=== PATIENT | female | born 1965 | race Caucasian/White ===

== ENCOUNTER 2016-10-29 17:40 | Inpatient (IN) | payer OTHER ==
[2016-10-29] MEDS ORDERED: HYDROmorphone 1 MG/ML Syringe IVPUSH ONE ×2 (17:50→18:50)
[2016-10-29] MEDS ORDERED: Ondansetron 4 MG/2 ML SDV IVPUSH ONE ×2 (17:51→18:50)
[2016-10-29] MEDS ORDERED: Sodium Chloride 0.9% 10 ML Syringe FLUSH PRN (17:58)
[2016-10-29] MEDS ORDERED: Iopamidol 612 MG/ML 100 ML Bottle IV SCH (18:00)
[2016-10-29] MEDS ORDERED: Sodium Chloride 0.9% 1,000 ML IV SCH ×3 (18:00→22:01)
[2016-10-29] MEDS ORDERED: LORazepam 2 MG/ML MDV IVPUSH ONE (19:50)
[2016-10-29] MEDS ORDERED: Docusate Sodium 100 MG Cap PO PRN (22:01)
[2016-10-29] MEDS ORDERED: Albuterol 0.083% 2.5 MG/3 ML Neb Soln NEB PRN (22:01)
[2016-10-29] MEDS ORDERED: Naloxone 0.4 MG/ML SDV IVPUSH PRN (22:01)
[2016-10-29] MEDS ORDERED: HYDROmorphone/Normal Saline 15 MG/30 ML PCA IV PRN (22:01)
[2016-10-29] MEDS ORDERED: Zolpidem 5 MG Tab PO PRN (22:01)
[2016-10-29] MEDS ORDERED: Albuterol/Ipratropium 3.0-0.5 MG/3 ML Neb Soln INH PRN (22:01)
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
[2016-10-29] MEDS: Ondansetron 4 MG Tab.DIS PO PRN (22:33)
[2016-10-30] MEDS: Ondansetron 4 MG Tab.DIS PO PRN ×3 (04:18→16:23)
[2016-10-30] MEDS: D5 1/2 NS w/ 20 mEq/L KCl 1,000 ML IV SCH ×2 (08:25→18:34)
[2016-10-30] MEDS ORDERED: Pantoprazole 40 MG Vial IVPUSH SCH (09:00)
[2016-10-30] MEDS: Docusate Sodium 100 MG Cap PO SCH ×2 (09:13→20:47)
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
--- NOTE | 2016-10-30 09:30 | PCM.PN ---
- General Info Date of Service: 10/30/16 Admission Dx/Problem (Free Text): Three rib fractures with small pneumothorax. Functional Status: Reports: pain controlled, tolerating diet (Has not had breakfast yet. ) - Review of Systems General: Reports: Other (Left chest pain.) HEENT: Reports: no symptoms Pulmonary: Reports: other (Left chest pain. ) Cardiovascular: Reports: No Symptoms Gastrointestinal: Reports: No symptoms Genitourinary: Reports: no symptoms Musculoskeletal: Reports: no symptoms Skin: Reports: no symptoms Neurological: Reports: No Symptoms Psychiatric: Reports: no symptoms - Patient Data Vitals - most recent: Last Vital Signs Temp 98.2 F 10/30/16 09:09 Pulse 61 10/30/16 09:09 Resp 20 10/30/16 09:09 BP 105/65 10/30/16 09:09 Pulse Ox 100 10/30/16 09:09 Weight - most recent: 173 lb 3.2 oz I&O - last 24 hours: Intake & Output 10/29/16 10/30/16 10/30/16 22:59 06:59 14:59 Intake Total 701 Output Total 600 300 Balance 101 -300 Lab Results last 24 hrs: Laboratory Results - last 24 hr 10/30/16 10/30/16 Range/Units 02:34 05:55 WBC 8.6 (4.5-11.0) K/uL RBC 4.05 (3.30-5.50) M/uL Hgb 11.4 L D (12.0-15.0) g/dL Hct 35.2 L (36.0-48.0) % MCV 87 (80-98) fL MCH 28 (27-31) pg MCHC 32 (32-36) % Plt Count 199 (150-400) K/uL Neut % (Auto) 78 H (36-66) % Lymph % (Auto) 12 L (24-44) % [place] % (Auto) 10 H (2-6) % Eos % (Auto) 0 L (2-4) % Baso % (Auto) 0 (0-1) % Urine Color Yellow Urine Appearance Clear Urine pH 6.0 (4.5-8.0) Ur Specific [place] 1.020 (1.008-1.030) Urine Protein Negative (NEGATIVE) mg/dL Urine Glucose (UA) 100 H (NEGATIVE) mg/dL Urine Ketones Negative (NEGATIVE) mg/dL Urine Occult Blood Negative (NEGATIVE) Urine Nitrite Negative (NEGATIVE) Urine Bilirubin Negative (NEGATIVE) Urine Urobilinogen Normal (NORMAL) mg/dL Ur Leukocyte Esterase Negative (NEGATIVE) Urine RBC Not seen (0-5) Urine WBC Not seen (0-5) Ur Epithelial Cells Few Amorphous Sediment Not seen Urine Bacteria Not seen Urine Mucus Few Med Orders - Current: Current Medications Albuterol (Proventil Neb Soln) 2.5 mg NEB Q4H PRN PRN Reason: Shortness Of Breath/wheezing Albuterol/Ipratropium (Duoneb 3.0-0.5 Mg/3 Ml) 3 ml INH ONETIME PRN PRN Reason: Shortness Of Breath/wheezing Docusate Sodium (Colace) 100 mg PO BID PRN PRN Reason: Constipation Docusate Sodium (Colace) 100 mg PO BID [facility] Last Admin: 10/30/16 09:13 Dose: 100 mg Hydromorphone HCl (Dilaudid Bottom Ironer 15 Mg In Ns 30 Ml) 0 mg IV ASDIRECTED PRN; Protocol PRN Reason: Pain Last Admin: 10/29/16 22:34 Dose: 15 mg Potassium Chloride/Dextrose/Sod Cl (D5 1/2 Ns W/ 20 Meq/L Kcl) 1,000 mls @ 100 mls/hr IV ASDIRECTED [facility] Last Admin: 10/30/16 08:25 Dose: 100 mls/hr Lorazepam (Ativan) 1 mg IV Q6H PRN PRN Reason: Nausea/Vomiting Naloxone HCl (Narcan) 0.4 mg IVPUSH Q2M PRN PRN Reason: Respiratory Distress Ondansetron HCl (Zofran Odt) 4 mg PO Q6H PRN PRN Reason: Nausea able to take PO Last Admin: 10/30/16 04:18 Dose: 4 mg Pantoprazole Sodium (Protonix Iv) 40 mg IVPUSH DAILY [facility] Last Admin: 10/30/16 09:13 Dose: 40 mg Zolpidem Tartrate (Ambien) 5 mg PO BEDTIME PRN PRN Reason: Sleep Discontinued Medications Hydromorphone HCl (Dilaudid) 1 mg IVPUSH ONETIME ONE Stop: 10/29/16 17:51 Last Admin: 10/29/16 18:14 Dose: 1 mg Hydromorphone HCl (Dilaudid) 1 mg IVPUSH ONETIME ONE Stop: 10/29/16 18:51 Last Admin: 10/29/16 19:03 Dose: 1 mg Sodium Chloride (Normal Saline) 1,000 mls @ 999 mls/hr IV ASDIRECTED COY Last Admin: 10/29/16 18:12 Dose: 999 mls/hr Sodium Chloride (Normal Saline) 70 mls @ 3 mls/sec IV ASDIRECTED COY Last Admin: 10/29/16 18:57 Dose: 3 mls/sec Sodium Chloride (Normal Saline) 1,000 mls @ 999 mls/hr IV ASDIRECTED COY Last Admin: 10/29/16 19:53 Dose: 999 mls/hr Sodium Chloride (Normal Saline) 1,000 mls @ 150 mls/hr IV ASDIRECTED COY Iopamidol (Isovue-300 (61%)) 100 ml IV . DIRECTED COY Last Admin: 10/29/16 18:57 Dose: 100 ml Lorazepam (Ativan) 1 mg IVPUSH ONETIME ONE Stop: 10/29/16 19:51 Last Admin: 10/29/16 20:02 Dose: 1 mg Ondansetron HCl (Zofran) 4 mg IVPUSH ONETIME ONE Stop: 10/29/16 17:52 Last Admin: 10/29/16 18:13 Dose: 4 mg Ondansetron HCl (Zofran) 4 mg IVPUSH ONETIME ONE Stop: 10/29/16 18:51 Last Admin: 10/29/16 18:58 Dose: 4 mg Sodium Chloride (Saline Flush) 10 ml FLUSH ASDIRECTED PRN PRN Reason: Keep Vein Open Last Admin: 10/29/16 18:57 Dose: 10 ml - Exam Quality Assessment: supplemental oxygen General: alert, oriented, cooperative, no acute distress Lungs: Clear to auscultation, Normal respiratory effort Cardiovascular: Regular Rate, Regular Rhythm Abdomen: bowel sounds present, soft, no tenderness, no distension Back Exam: Normal Inspection, Full Range of Motion Extremities: no edema Skin: warm, dry, intact Neurological: no new focal deficit, normal speech, normal tone Psy/Mental Status: alert, normal affect, normal mood - Problem List Review Problem List Initiated/Reviewed/Updated: Yes - My Orders Last 24 Hours: My Active Orders 10/29/16 20:20 Transfer Patient (Change bed) [ADT] Routine 10/29/16 22:15 D5 1/2 NS w/ 20 mEq/L KCl 1,000 ml IV ASDIRECTED 10/29/16 22:18 Communication Order [RC] ROUTINE 10/30/16 09:00 Docusate Sodium [Colace] 100 mg PO BID - Assessment Assessment:: CXR looks well with fractures. If she eats well and has good pain control with oral pain medication, she may go home. - Plan Plan:: Fractured ribs #8, 9, 10 on left with very small pneumothorax. Patient is admitted for pain control and to follow her.
[2016-10-30] MEDS: Acetaminophen/HYDROcodone 325-5 MG Tab PO PRN ×3 (10:48→20:58)
[2016-10-30] MEDS: LORazepam 2 MG/ML MDV IV PRN (14:16)
[2016-10-31] MEDS: Acetaminophen/HYDROcodone 325-5 MG Tab PO PRN ×3 (03:49→08:17)
[2016-10-31] MEDS: Ondansetron 4 MG Tab.DIS PO PRN ×3 (03:50→17:53)
[2016-10-31] MEDS: D5 1/2 NS w/ 20 mEq/L KCl 1,000 ML IV SCH (03:56)
[2016-10-31] MEDS: Docusate Sodium 100 MG Cap PO SCH (08:19)
--- NOTE | 2016-10-31 11:16 | PCM.DCSUM1 ---
Discharge Summary - Hospital Course Free Text/Narrative:: This 51 year old white female lives on [address] [place]. Two days ago she was getting out of her boat (barge) when she fell on the dock complaining of left chest pain and nausea. She presented to the ER where she was found on CT of her chest to have fractures of left ribs #8, 9, and 10. There was also a small pneumothorax and subcutaneous emphysema. She was admitted for pain control and serial CXR's. Currently her pain is improving. She is taking Perry which causes nausea. CXR's appear OK. We are adding Toradol as her Hgb is stable. She is eating and ready to go home. She is discharge to home in good condition. Brief History: See above narrative. - Discharge Data Discharge Date: 10/31/16 Discharge Disposition: Home, Self-Care 01 Condition: Good - Discharge Diagnosis/Problem(s) (1) Pneumothorax on left SNOMED Code(s): 291544345 ICD Code: J93.9 - PNEUMOTHORAX, UNSPECIFIED Status: Acute Current Visit: Yes - Patient Summary/Data Consults: Consultations 10/29/16 22:01 OT Evaluation and Treatment [CONS] Routine Please Evaluate and Treat. OT Reason for Consult: Discharge Planning This query below is only for informational purposes and is not editable. Admission Diagnosis/Problem: Pneumothorax PT Evaluation and Treatment [CONS] Routine Please Evaluate and Treat. PT Reason for Consult: Other (Type Response) Pending Discharge: fracture rib, discharge planning This query below is only for informational purposes and is not editable. Admission Diagnosis/Problem: Pneumothorax Hospital Course: See above narrative. - Patient Instructions Diet: Usual Diet as Tolerated Activity: As Tolerated Driving: Do Not Drive Driving, Other: Do not drive while taking narcotic pain. Showering/Bathing: May Shower Notify Provider of: Fever, Increased Pain, Swelling and Redness, Drainage, Nausea and/or Vomiting Other/Special Instructions: No flying, driving in mountains (or going down [facility]) or diving for three months. - Discharge Plan Prescriptions/Med Rec: Acetaminophen/HYDROcodone [Perry 325-5 MG] 1 - 2 tab PO Q4H PRN #30 tablet PRN Reason: Abdominal Pain Docusate Sodium [Colace] 100 mg PO BID #100 cap Ketorolac [Toradol] 10 mg PO Q6H #20 tab Ondansetron [Zofran ODT] 4 mg PO Q6H PRN #10 tab.dis PRN Reason: Nausea Home Medications: Home Meds Acetaminophen/HYDROcodone [Perry 325-5 MG] 1 - 2 tab PO Q4H PRN #30 tablet 10/31 [Rx] Docusate Sodium [Colace] 100 mg PO BID #100 cap 10/31/16 [Rx] Ketorolac [Toradol] 10 mg PO Q6H #20 tab 10/31/16 [Rx] Ondansetron [Zofran ODT] 4 mg PO Q6H PRN #10 tab.dis 10/31/16 [Rx] Forms: ED Department Discharge Referrals: PCP,None [Primary Care Provider] - Main [facility] Fuente MD [Physician] - (See me in [facility] Tuesday for CXR and check. ) - Discharge Summary/Plan Comment DC Time >30 min.: Yes Discharge Summary/Plan Comment: See me in clinic later this week for CXR and check. - Patient Data Vitals - Most Recent: Last Vital Signs Temp 98.2 F 10/31/16 03:56 Pulse 70 10/31/16 07:14 Resp 16 10/31/16 07:14 BP 110/67 10/31/16 07:14 Pulse Ox 95 10/31/16 07:14 Weight - Most Recent: 173 lb 3.2 oz I&O - Last 24 hours: Intake & Output 10/30/16 10/31/16 10/31/16 22:59 06:59 14:59 Intake Total 1555 1217 Output Total 1700 Balance 1555 -483 Lab Results - Last 24 hrs: Laboratory Results - last 24 hr 10/31/16 Range/Units 05:12 WBC 6.6 (4.5-11.0) K/uL RBC 4.17 (3.30-5.50) M/uL Hgb 11.6 L (12.0-15.0) g/dL Hct 37.2 (36.0-48.0) % MCV 89 (80-98) fL MCH 28 (27-31) pg MCHC 31 L (32-36) % Plt Count 201 (150-400) K/uL Med Orders - Current: Current Medications Hydrocodone Bitart/Acetaminophen (Perry 325-5 Mg) 1 - 2 tab PO Q4H PRN PRN Reason: Abdominal Pain Last Admin: 10/31/16 08:17 Dose: 2 tab Albuterol (Proventil Neb Soln) 2.5 mg NEB Q4H PRN PRN Reason: Shortness Of Breath/wheezing Albuterol/Ipratropium (Duoneb 3.0-0.5 Mg/3 Ml) 3 ml INH ONETIME PRN PRN Reason: Shortness Of Breath/wheezing Docusate Sodium (Colace) 100 mg PO BID COY Last Admin: 10/31/16 08:19 Dose: 100 mg Potassium Chloride/Dextrose/Sod Cl (D5 1/2 Ns W/ 20 Meq/L Kcl) 1,000 mls @ 100 mls/hr IV ASDIRECTED [facility] Last Admin: 10/31/16 03:56 Dose: 100 mls/hr Ketorolac Tromethamine (Toradol) 10 mg PO Q6H [facility] Stop: 11/05/16 11:16 Lorazepam (Ativan) 1 mg IV Q6H PRN PRN Reason: Nausea/Vomiting Last Admin: 10/30/16 14:16 Dose: 1 mg Naloxone HCl (Narcan) 0.4 mg IVPUSH Q2M PRN PRN Reason: Respiratory Distress Ondansetron HCl (Zofran Odt) 4 mg PO Q6H PRN PRN Reason: Nausea able to take PO Last Admin: 10/31/16 08:17 Dose: 4 mg Zolpidem Tartrate (Ambien) 5 mg PO BEDTIME PRN PRN Reason: Sleep Discontinued Medications Docusate Sodium (Colace) 100 mg PO BID PRN PRN Reason: Constipation Hydromorphone HCl (Dilaudid) 1 mg IVPUSH ONETIME ONE Stop: 10/29/16 17:51 Last Admin: 10/29/16 18:14 Dose: 1 mg Hydromorphone HCl (Dilaudid) 1 mg IVPUSH ONETIME ONE Stop: 10/29/16 18:51 Last Admin: 10/29/16 19:03 Dose: 1 mg Hydromorphone HCl (Dilaudid [employer] 15 Mg In Ns 30 Ml) 0 mg IV ASDIRECTED PRN; Protocol PRN Reason: Pain Last Admin: 10/29/16 22:34 Dose: 15 mg Sodium Chloride (Normal Saline) 1,000 mls @ 999 mls/hr IV ASDIRECTED COY Last Admin: 10/29/16 18:12 Dose: 999 mls/hr Sodium Chloride (Normal Saline) 70 mls @ 3 mls/sec IV ASDIRECTED COY Last Admin: 10/29/16 18:57 Dose: 3 mls/sec Sodium Chloride (Normal Saline) 1,000 mls @ 999 mls/hr IV ASDIRECTED COY Last Admin: 10/29/16 19:53 Dose: 999 mls/hr Sodium Chloride (Normal Saline) 1,000 mls @ 150 mls/hr IV ASDIRECTED COY Iopamidol (Isovue-300 (61%)) 100 ml IV . DIRECTED [facility] Last Admin: 10/29/16 18:57 Dose: 100 ml Lorazepam (Ativan) 1 mg IVPUSH ONETIME ONE Stop: 10/29/16 19:51 Last Admin: 10/29/16 20:02 Dose: 1 mg Ondansetron HCl (Zofran) 4 mg IVPUSH ONETIME ONE Stop: 10/29/16 17:52 Last Admin: 10/29/16 18:13 Dose: 4 mg Ondansetron HCl (Zofran) 4 mg IVPUSH ONETIME ONE Stop: 10/29/16 18:51 Last Admin: 10/29/16 18:58 Dose: 4 mg Pantoprazole Sodium (Protonix Iv) 40 mg IVPUSH DAILY [facility] Last Admin: 10/30/16 09:13 Dose: 40 mg Sodium Chloride (Saline Flush) 10 ml FLUSH ASDIRECTED PRN PRN Reason: Keep Vein Open Last Admin: 10/29/16 18:57 Dose: 10 ml *Q Meaningful Use (DIS) - VTE *Q VTE Criteria *Q: - Stroke *Q Stroke Criteria *Q: - AMI *Q AMI Criteria *Q:
[2016-10-31] MEDS: LORazepam 2 MG/ML MDV IV PRN (11:35)
[2016-10-31] MEDS: Ketorolac 10 MG Tab PO SCH ×2 (12:31→17:56)
[2016-10-31 12:35] VITALS: BP 103/60
--- NOTE | 2016-11-01 10:58 | CR ---
Chest 2V HISTORY: Left rib fractures, tiny pneumothorax on prior CT scan. COMPARISON: CT scan 10/29/2016. FINDINGS: No left-sided pneumothorax is seen on plain films. The rib fractures are slightly obscured in the lower left chest. Left lung base atelectasis or contusion seen on lateral film and second fr ontal film. Right lung is clear.
--- NOTE | 2016-11-02 11:26 | CR ---
Chest 1V Frontal HISTORY: Left chest trauma COMPARISON: Chest x-ray 10/30/2016. FINDINGS: No left-sided pneumothorax seen. This was very small on prior CT scan 10/29/2016. Minimal a telectasis or infiltrate left lung base just adjacent to the left hemidiaphragm. The previously seen rib fractures are minimally visualized on today's study.
== END 2016-10-31 19:18 | disposition home or self-care (01) | DRG 200 ==
LOC: JP.ED 17:42 → JP.MS 20:32
PROVIDERS: ADMIT Surgery; ATTEND Surgery
DX: S27.0XXA Traumatic pneumothorax, initial encounter (principal); S22.42XA Multiple fractures of ribs, left side, initial encounter for closed fracture; V94.0XXA Hitting object or bottom of body of water due to fall from watercraft, initial encounter; Y92.828 Other wilderness area as the place of occurrence of the external cause; Z85.828 Personal history of other malignant neoplasm of skin; T79.7XXA Traumatic subcutaneous emphysema, initial encounter
CPT/HCPCS: 36415; 71010; 71010-26; 71020; 71020-26; 71260; 80053; 81001; 85025; 85027; 96361; 96374; 96375; 96376; 97162-GP; 97535-GP; 99284-25; A9270-GY; C9113; J1170; J2060; J2405; J3480; J7030; J7040; J7050; Q9967

== ENCOUNTER 2020-05-29 07:20 | Day surgery (SDC) | payer OTHER ==
[2020-05-29] MEDS ORDERED: Dextrose 5%-Lactated Ringers 1,000 ML IV SCH (08:00)
[2020-05-29] MEDS ORDERED: fentaNYL 100 MCG/2 ML SDV ONE (08:09)
[2020-05-29] MEDS ORDERED: Propofol 200 MG/20 ML SDV ONE (08:10)
[2020-05-29] MEDS ORDERED: Midazolam 1 MG/ML 2 ML SDV ONE (08:10)
[2020-05-29] MEDS ORDERED: Glycopyrrolate 0.2 MG/ML 2 ML SDV IVPUSH ONE (09:00)
[2020-05-29] MEDS ORDERED: Pantoprazole 40 MG Vial IVPUSH ONE (09:28)
[2020-05-29 10:37] VITALS: BP 108/69; PULSE 68
--- NOTE | 2020-06-09 15:32 | OR ---
DATE OF PROCEDURE: 05/29/2020 SURGEON: Ravindra Garza MD PREOPERATIVE DIAGNOSIS: Dysphagia referable to distal esophagus. POSTOPERATIVE DIAGNOSIS: Dysphagia referable to distal esophagus with moderately active gastroesophageal reflux disease and edema (no stricture) at gastroesophageal junction. OPERATIVE PROCEDURE: Esophagogastroduodenoscopy with: 1. Biopsies of esophagogastric junction for histologic evaluation. 2. Biopsies of antrum for CLOtest. ANESTHESIA: IV sedation. INDICATION FOR PROCEDURE: A 54-year-old female presenting with some dysphagia referable to the distal esophagus. She on questioning does not report any obvious reflux-type symptoms. She is not presently on any antisecretory medication. Plan is to proceed with an upper GI endoscopy with biopsies and/or dilation as indicated. Potential risks including bleeding and perforation were discussed, and the patient wishes to proceed. DETAILS OF PROCEDURE: The patient was taken to the operating room, placed in a left lateral decubitus position. IV sedation was administered after which the upper GI endoscope was passed orally through the length of the esophagus, into the stomach, with retroflexion view of the fundus, and thereafter, through the pyloric channel and into the proximal duodenum. Findings included normal hypopharynx, larynx, upper esophageal sphincter, and esophageal body. At the EG junction, the patient was noted to have a small hiatal hernia, but with mildly active gastroesophageal reflux disease. There was quite a bit of edema and friability of the distal esophageal mucosa. There was some possible upward extension of the gastroesophageal junction mucosal line, but no plaquing or stricturing. Within the stomach, there was no significant inflammation in the gastric mucosa and likewise the pyloric sphincter and duodenum to the junction of the third and fourth portions were unremarkable. At this point, biopsies were obtained from the antrum to establish patient's H. pylori status. Multiple biopsies were then obtained from esophagogastric junction, sent for histologic evaluation. Minimal bleeding from the biopsy sites was seen, and the procedure was then concluded. Presumably, the patient's sense of dysphagia was referable to the edema at the esophagogastric junction related to the reflux disease. She will be given Protonix 40 mg IV in the recovery room and then begun on Protonix 40 mg daily. She will be following up with Dr. Valenzuela at [facility] in 2 to 3 weeks. Should she have persistent dysphagia despite treatment of the reflux disease, one might consider a manometry as that would be a required test in this case prior to any antireflux surgery given the predominant symptom of dysphagia. Ravindra Garza MD /[id number]
== END 2020-05-29 10:40 | disposition home or self-care (01) ==
LOC: JP.SDS 07:20
PROVIDERS: ATTEND Surgery
DX: K21.9 Gastro-esophageal reflux disease without esophagitis (principal); R10.13 Epigastric pain; K44.9 Diaphragmatic hernia without obstruction or gangrene
CPT/HCPCS: 43239; 87081; 88305; C9113; J2250; J2704; J3010; J3490; J7121